=== PATIENT | male | born 1970 | race Two or more races ===

== ENCOUNTER 2018-09-08 09:48 | Outpatient (CLI) | payer BC | END 2018-09-08 23:59 | disposition home or self-care (01) | LOC: LAB 09:48 | PROVIDERS: ATTEND Family Medicine | DX: R31.9 Hematuria, unspecified (principal) | CPT/HCPCS: 87086-TC ==

== ENCOUNTER 2019-02-08 14:43 | Outpatient (CLI) | payer BC | END 2019-02-08 23:59 | disposition home or self-care (01) | LOC: MRI 14:43 | PROVIDERS: ATTEND Family Medicine | DX: S46.812A Strain of other muscles, fascia and tendons at shoulder and upper arm level, left arm, initial encounter (principal); M19.012 Primary osteoarthritis, left shoulder; M48.07 Spinal stenosis, lumbosacral region; M47.817 Spondylosis without myelopathy or radiculopathy, lumbosacral region; M47.816 Spondylosis without myelopathy or radiculopathy, lumbar region; M51.27 Other intervertebral disc displacement, lumbosacral region; M43.17 Spondylolisthesis, lumbosacral region; M46.06 Spinal enthesopathy, lumbar region; X58.XXXA Exposure to other specified factors, initial encounter; Y93.89 Activity, other specified; Y92.89 Other specified places as the place of occurrence of the external cause; Y99.8 Other external cause status | CPT/HCPCS: 72148-TC; 73221-TC ==

== ENCOUNTER 2023-12-25 07:50 | Outpatient (CLI) | payer BC | END 2023-12-25 23:59 | disposition home or self-care (01) | LOC: MRI 07:50 | PROVIDERS: ATTEND Family Medicine | DX: M51.27 Other intervertebral disc displacement, lumbosacral region (principal); M48.07 Spinal stenosis, lumbosacral region; M51.37 Other intervertebral disc degeneration, lumbosacral region; M25.561 Pain in right knee; M25.562 Pain in left knee | CPT/HCPCS: 72148-TC; 73721-TC ==